=== PATIENT | female | born 1945 ===

== ENCOUNTER 2021-04-18 09:24 | Outpatient (CLI) | payer SELFPAY ==
[2021-04-18 13:58] VITALS: BP 145/81; PULSE 115; PULSE 117; RESP 20; TEMP 36.9; O2SAT 94
[2021-04-18 14:05] VITALS: PULSE 115
[2021-04-18] MEDS: Normal Saline 500 ML 30 ML IV (14:50)
[2021-04-18 14:55] VITALS: BP 126/78; PULSE 111; RESP 20; TEMP 36.9; O2SAT 93
[2021-04-18 15:20] VITALS: BP 115/74; PULSE 106; RESP 20; TEMP 36.8; O2SAT 93
--- NOTE | 2021-04-18 15:40 | NUR.NOTE ---
Nursing Note: During initial assessment prior to receiving MAB infusion, patient expressed housing issues including not being able to move around her home without issue, and not having adequate support at home. Discussed with patient, she advised she had received paperwork from her doctors office with information on resources however she had not been able to read any of the information. Asked patient if she would mind if a referral was placed to [facility] to see if they could assist with referring patient for resources in her community and patient was in agreement. Will notify [facility] of this referral.
[2021-04-18 15:54] VITALS: BP 120/78; PULSE 106; RESP 20; TEMP 36.9; O2SAT 94
[2021-04-18 16:17] VITALS: BP 126/67; PULSE 107; RESP 20; TEMP 36.8; O2SAT 93
== END 2021-04-18 09:25 | disposition home or self-care (01) ==
PROVIDERS: Visit Provider Family Medicine
DX: U07.1 COVID-19 (principal)
CPT/HCPCS: 96365